=== PATIENT | male | born 1955 | race Two or more races ===

== ENCOUNTER 2018-04-01 08:42 | Emergency (ER) | payer OTHER ==
[~2018-04-01] VITALS: Ht 167.6 cm; Wt 99.8 kg
[2018-04-01] MEDS ORDERED: KETOROLAC TROMETHAMINE 15 MG/ML VIAL ONE (09:11)
[2018-04-01 09:20] LABS: BASOPHILS # (AUTO) 0.1 /CMM (0.0-0.2); BASOPHILS % (AUTO) 0.7 % (0.0-2.0); EOSINOPHILS % (AUTO) 1.1 % (0.0-6.0); HEMATOCRIT 42 % (39-51); HEMOGLOBIN 13.9 g/dL (13.5-17.5); LYMPHOCYTES # (AUTO) 1.8 /CMM (0.8-4.8); LYMPHOCYTES % (AUTO) 16.1 % (20.0-44.0); MEAN CORPUSCULAR HGB CONC 33 g/dl (31.0-36.0); MEAN CORPUSCULAR VOLUME 87 fL (80-96); MONOCYTES # (AUTO) 0.7 /CMM (0.1-1.30); NEUTROPHILS # (AUTO) 8.7 /CMM (1.8-8.9); NEUTROPHILS % (AUTO) 76.1 % (43.0-81.0); PLATELET COUNT (AUTO) 237 /CMM (150-450); RED BLOOD CELL COUNT(AUTO) 4.85 MIL/uL (4.5-6.0); WHITE BLOOD COUNT (AUTO) 11.4 K/uL (4.3-11.0)
[2018-04-01 09:21] LABS: APPEARANCE,URINE CLEAR (CLEAR); BILIRUBIN,URINE NEGATIVE (NEGATIVE); BLOOD, URINE SMALL Ery/uL (NEGATIVE); COLOR,URINE YELLOW (YELLOW); KETONES,URINE NEGATIVE (NEGATIVE); LEUKOCYTE ESTERASE ,URINE NEGATIVE (NEGATIVE); NITRITE, URINE NEGATIVE (NEGATIVE); PH,URINE 7.5 (5.0-8.0); PROTEIN,URINE NEGATIVE (NEGATIVE); UGLUCOSE NEGATIVE (NEGATIVE)
--- NOTE | 2018-04-01 09:23 | NUR ---
R FLANK PAIN X 2 DAYS. PT AAOX4, VSS. DENIES N/V, DIARRHEA OR ANY OTHER DISCOMFORT @ THIS TIME. PT SEEN & EVAL'D BY DR. DENSON. MEDICATED FOR PAIN & WILL CONT TO MONITOR.
[2018-04-01 09:26] LABS: BACTERIA,URINE Rare /HPF (None Seen); SQUAMOUS EPITHELIAL CELL,UR Few /HPF (None Seen); WBC,URINE 0-2 /HPF (0-3)
[2018-04-01 09:28] LABS: CALCIUM, SERUM 8.8 mg/dL (8.5-10.1); CREATININE 0.8 mg/dL (0.6-1.3); POTASSIUM 4.3 mmol/L (3.5-5.1)
[2018-04-01] MEDS ORDERED: KETOROLAC TROMETHAMINE INJ 30 MG/ML VIAL IV ONE (09:30)
[2018-04-01 09:34] LABS: ALBUMIN 3.2 g/dL (3.4-5.0); BILIRUBIN,DIRECT 0.1 mg/dL (0.0-0.2); BILIRUBIN,TOTAL 0.4 mg/dL (0.2-1.0); TOTAL PROTEIN, SERUM 6.8 g/dL (6.4-8.2)
[2018-04-01 11:10] VITALS: BP 142/89
--- NOTE | 2018-04-01 11:11 | NUR ---
Patient discharged to home in stable condition. Written and verbal after care instructions given. Patient verbalizes understanding of instruction. IV removed. Catheter intact and site benign. Pressure and 4x4 applied to site. No bleeding noted.
== END 2018-04-01 11:12 | disposition home or self-care (01) ==
LOC: ER 08:48
DX: R10.11 Right upper quadrant pain (principal); R31.29 Other microscopic hematuria; I10 Essential (primary) hypertension; E78.5 Hyperlipidemia, unspecified; Z87.442 Personal history of urinary calculi; Z98.890 Other specified postprocedural states
CPT/HCPCS: 36415; 76705-TC; 76770-TC; 80048-TC; 80076-TC; 81000-TC; 83690-TC; 85025-TC; A4606; J1885; Z7610

== ENCOUNTER 2018-11-16 08:43 | Inpatient (IN) | payer MEDICAID, OTHER ==
[~2018-11-16] VITALS: Ht 167.6 cm; Wt 93.0 kg
--- NOTE | 2018-11-16 08:50 | NUR ---
RUQ ABDOMINA PAIN, VOMITING BLOOD, BLOOD IN STOOL SINCE LAST NIGHT. PATIENT A/OX4, BREATHING EVEN AND UNLABORED, NO DISTRESS NOTED. ATTACHED TO THE MONITOR. CHANGED INTO GOWN.
[2018-11-16 09:19] LABS: BASOPHILS # (AUTO) 0.1 /CMM (0.0-0.2); BASOPHILS % (AUTO) 0.4 % (0.0-2.0); EOSINOPHILS % (AUTO) 0.1 % (0.0-6.0); HEMATOCRIT 35 % (39-51); HEMOGLOBIN 11.6 g/dL (13.5-17.5); LYMPHOCYTES # (AUTO) 2.3 /CMM (0.8-4.8); LYMPHOCYTES % (AUTO) 12.5 % (20.0-44.0); MEAN CORPUSCULAR HGB CONC 33 g/dl (31.0-36.0); MEAN CORPUSCULAR VOLUME 88 fL (80-96); MONOCYTES # (AUTO) 1.3 /CMM (0.1-1.30); NEUTROPHILS # (AUTO) 14.7 /CMM (1.8-8.9); PLATELET COUNT (AUTO) 287 /CMM (150-450); RED BLOOD CELL COUNT(AUTO) 4.01 MIL/uL (4.5-6.0); WHITE BLOOD COUNT (AUTO) 18.4 K/uL (4.3-11.0)
[2018-11-16 09:28] LABS: CALCIUM, SERUM 8.3 mg/dL (8.5-10.1); CREATININE 0.8 mg/dL (0.6-1.3); POTASSIUM 4.2 mmol/L (3.5-5.1)
[2018-11-16] MEDS ORDERED: PANTOPRAZOLE 80 MG in IV NS 0.9% 100 ML IV ONE (09:30)
[2018-11-16] MEDS ORDERED: PANTOPRAZOLE 40 MG VIAL IV ONE (09:30)
[2018-11-16] MEDS ORDERED: PANTOPRAZOLE 80 MG in IV NS 0.9% 500 ML IV ONE (09:30)
[2018-11-16 09:34] LABS: ALBUMIN 3.3 g/dL (3.4-5.0); BILIRUBIN,DIRECT 0.1 mg/dL (0.0-0.2); BILIRUBIN,TOTAL 0.4 mg/dL (0.2-1.0); TOTAL PROTEIN, SERUM 6.8 g/dL (6.4-8.2)
[2018-11-16] MEDS ORDERED: SIMV20TA6 PO (09:47)
[2018-11-16] MEDS ORDERED: OMEP40CA37 PO (09:47)
[2018-11-16] MEDS ORDERED: AMLO-62 PO (09:47)
[2018-11-16] MEDS ORDERED: CT SWABBABLE VALVE TRANS SET 1 EA INFUS.SET MC ONE (10:12)
[2018-11-16] MEDS ORDERED: IV NS 0.9% 250 ML IV ONE (10:12)
[2018-11-16] MEDS ORDERED: IOHEXOL-300 100 ML VIAL IV ONE (10:12)
--- NOTE | 2018-11-16 11:23 | NUR ---
called [facility].
--- NOTE | 2018-11-16 12:55 | NUR ---
PAGED [facility] FOR [facility].
--- NOTE | 2018-11-16 13:02 | NUR ---
REPORT GIVEN TO JACK DYKES.
--- NOTE | 2018-11-16 13:07 | NUR ---
CONNOR CALLED Dr. Lucas Obrien CALLED
--- NOTE | 2018-11-16 13:40 | NUR ---
RETAIL FIELD MERCHANDISER NOTES PATIENT CAME IN VIA GURNEY. AMBULATED TO GO TO HIS BED. STEADY GAIT. NO COMPLAINS OF ANY PAIN AT THIS TIME. ON ROOM AIR, NO SOB NOTED. CLEAR LUNG SOUNDS. PATIENT WENT TO ER DUE TO RUQ ABD PAIN, VOMITING BLOOD AND BLACK STOOL. ALERT AND ORIENTED X4. FAMILY AT BEDSIDE. HAS A LEFT AC #18. SALINE LOCKED. WAS ABLE TO MAKE NEEDS KNOWN. SKIN IS INTACT, NO PICTURES TAKEN. BED LOCKED AND IN LOWEST POSITION. CALL LIGHT WITHIN REACH. WILL CONTINUE TO MONITOR PATIENT
--- NOTE | 2018-11-16 13:40 | NUR ---
PATIENT TRANSFERRED TO ROOM 118-1 VIA ACLS PROTOCOL. PATIENT DENIES PAIN AT THIS TIME. ENDORSED TO JACK DYKES.
[2018-11-16] MEDS ORDERED: ACETAMINOPHEN 325 MG TABLET PO PRN (14:00)
[2018-11-16] MEDS ORDERED: MAGNESIUM HYDROXIDE 30 ML UDC PO PRN (14:00)
[2018-11-16] MEDS ORDERED: MORPHINE SULFATE INJ 2 MG/ML DISP.SYRIN IV PRN (14:00)
[2018-11-16] MEDS ORDERED: Z GUARD REMEDY 2 OZ OINT TP PRN (14:00)
[2018-11-16] MEDS ORDERED: MAG HYDROX/AL HYDROX/SIMETH 30 ML UDC PO PRN (14:00)
[2018-11-16] MEDS ORDERED: ONDANSETRON HCL/PF 4 MG/2 ML VIAL IVP PRN (14:00)
[2018-11-16 15:00] VITALS: BP 143/86
[2018-11-16] MEDS: IV D5/0.45 NACL 1,000 ML IV PRN (15:03)
--- NOTE | 2018-11-16 15:51 | NUR ---
RN NOTES PER ROSE MRAY, INSERT NGT. TRIED TO INSERT BUT PATIENT REMOVED IT WHILE I WAS ABOUT TO PUT TAPE ON IT. PATIENT STATES HE REFUSES NGT. ROSE MARY MADE AWARE, SHE SAID ITS FINE
[2018-11-16 16:00] VITALS: BP 137/69
[2018-11-16] MEDS: SUCRALFATE 1 G TABLET PO SCH ×2 (17:42→21:31)
--- NOTE | 2018-11-16 19:00 | NUR ---
RN CLOSING NOTES PATIENT IN BED, AWAKE AND ALERT. HAS A LEFT AC #18 WITH D5 HALF NS RUNNING AT 75ML/HR. ON ROOM AIR, SATING WELL AT 100%. ON TELE MONITOR, SR. PATIENT IS NPO, WILL HAVE EGD TOMORROW. CONSENT HAS BEEN SIGNED IN CHART. NGT REFUSED, MD AWARE. PATIENT NO COMPLAINS OF ANY PAIN NOR SOB AT THIS TIME. BED ON LOWEST POSITION. CALL LIGHT WITHIN REACH. WILL ENDORSE TO NOC SHIFT FOR JEFFERY. GRAND DAUGHTER WILL STAY FOR THE NIGHT
--- NOTE | 2018-11-16 19:15 | NUR ---
HOUSEKEEPER SUPERVISOR NOTE PATIENT IN BED HOB HIGH. NO S/S OF DISTRESS. PATIENT A/O X [address] PATIENT SR ON THE MONITOR. PATIENT DENIES CHEST PAIN/ ABD PAIN/ SOB/ , OR DISCOMFORT. PATIENT HAS ;AC 18 G PATENT AND INTACT RUNNING D51/2NS AT 75 ML AN HOURS. PATIENT AWARE OF EGD TOMORROW. RN WILL CONTINUE TO MONITOR FOR CHANGES. BED IN LOWEST LOCKED POSITION, CALL LIGHT WITHIN HAND.
[2018-11-16 20:00] VITALS: BP 130/72
[2018-11-16 20:59] LABS: HEMOGLOBIN 10.9 g/dL (13.5-17.5)
[2018-11-16] MEDS: SIMVASTATIN 20 MG TABLET PO SCH (21:31)
[2018-11-17] VITALS: BP 104/64
[2018-11-17 04:00] VITALS: BP 111/66
[2018-11-17] MEDS: IV D5/0.45 NACL 1,000 ML IV PRN (04:47)
[2018-11-17 07:23] LABS: BASOPHILS % (AUTO) 0.4 % (0.0-2.0); EOSINOPHILS % (AUTO) 1.7 % (0.0-6.0); HEMATOCRIT 30 % (39-51); LYMPHOCYTES % (AUTO) 18.8 % (20.0-44.0); MEAN CORPUSCULAR HGB CONC 34 g/dl (31.0-36.0); MEAN CORPUSCULAR VOLUME 86 fL (80-96); MONOCYTES # (AUTO) 0.7 /CMM (0.1-1.30); MONOCYTES % (AUTO) 6.3 % (2.0-12.0); NEUTROPHILS # (AUTO) 7.8 /CMM (1.8-8.9); NEUTROPHILS % (AUTO) 72.8 % (43.0-81.0); PLATELET COUNT (AUTO) 239 /CMM (150-450); RED BLOOD CELL COUNT(AUTO) 3.47 MIL/uL (4.5-6.0); WHITE BLOOD COUNT (AUTO) 10.7 K/uL (4.3-11.0)
[2018-11-17] MEDS ORDERED: Medication Not On Formulary EA (Omeprazole 40 MG) PO SCH (07:30)
[2018-11-17 07:45] LABS: CREATININE 0.7 mg/dL (0.6-1.3); PHOSPHORUS 3.6 mg/dL (2.5-4.9); POTASSIUM 3.5 mmol/L (3.5-5.1)
[2018-11-17 08:00] VITALS: BP 134/58
[2018-11-17] MEDS: BENAZEPRIL HCL 20 MG TABLET PO SCH (08:44)
[2018-11-17] MEDS: PANTOPRAZOLE 40 MG TABLET.DR PO SCH ×2 (08:44→17:28)
[2018-11-17] MEDS: AMLODIPINE BESYLATE 10 MG TABLET PO SCH (08:44)
[2018-11-17] MEDS: SUCRALFATE 1 G TABLET PO SCH ×4 (08:44→21:47)
[2018-11-17 09:01] LABS: THYROID STIMULATING HORMONE 1.571 uIU/mL (0.358-3.74)
[2018-11-17 12:00] VITALS: BP 108/55
[2018-11-17 16:00] VITALS: BP 133/76
[2018-11-17 16:36] LABS: APPEARANCE,URINE CLOUDY (CLEAR); BILIRUBIN,URINE NEGATIVE (NEGATIVE); BLOOD, URINE 1+ Ery/uL (NEGATIVE); COLOR,URINE YELLOW (YELLOW); KETONES,URINE NEGATIVE (NEGATIVE); LEUKOCYTE ESTERASE ,URINE 1+ (NEGATIVE); NITRITE, URINE NEGATIVE (NEGATIVE); PH,URINE 5.5 (5.0-8.0); PROTEIN,URINE NEGATIVE (NEGATIVE); UGLUCOSE NEGATIVE (NEGATIVE)
[2018-11-17 16:53] LABS: BACTERIA,URINE 4+ /HPF (None Seen)
[2018-11-17 20:00] VITALS: BP 111/60
[2018-11-17] MEDS: SIMVASTATIN 20 MG TABLET PO SCH (21:47)
--- NOTE | 2018-11-18 | NUR ---
RN NOTE PATIENT IN BED AWAKE A/O X 4 , NO S/S OF SOB/ACUTE DISTRESS NOTED, DENIES PAIN OR DISCOMFORT, LEFT AC 18 G PATENT AND INTACT RUNNING, INFORMED PATIENT THAT EGD WILL BE TOMORROW AND HE WILL NEED TO BE NPO AFTER MIDNIGHT, VERBALIZED UNDERSTANDING, WILL CONTINUE TO MONITOR CLOSELY, FAMILY AT BEDSIDE, BED IN LOWEST LOCKED POSITION, CALL LIGHT WITHIN REACH.
[2018-11-18 04:00] VITALS: BP 103/52
[2018-11-18 06:19] LABS: BASOPHILS % (AUTO) 0.5 % (0.0-2.0); EOSINOPHILS % (AUTO) 2.1 % (0.0-6.0); HEMATOCRIT 27 % (39-51); HEMOGLOBIN 9.2 g/dL (13.5-17.5); LYMPHOCYTES # (AUTO) 1.7 /CMM (0.8-4.8); LYMPHOCYTES % (AUTO) 20.1 % (20.0-44.0); MEAN CORPUSCULAR HGB CONC 34 g/dl (31.0-36.0); MEAN CORPUSCULAR VOLUME 86 fL (80-96); MONOCYTES # (AUTO) 0.6 /CMM (0.1-1.30); MONOCYTES % (AUTO) 6.6 % (2.0-12.0); NEUTROPHILS # (AUTO) 6.1 /CMM (1.8-8.9); NEUTROPHILS % (AUTO) 70.7 % (43.0-81.0); PLATELET COUNT (AUTO) 201 /CMM (150-450); RED BLOOD CELL COUNT(AUTO) 3.18 MIL/uL (4.5-6.0); WHITE BLOOD COUNT (AUTO) 8.7 K/uL (4.3-11.0)
[2018-11-18 06:42] LABS: CREATININE 0.8 mg/dL (0.6-1.3); MAGNESIUM 1.8 mg/dL (1.8-2.4); PHOSPHORUS 3.5 mg/dL (2.5-4.9); POTASSIUM 3.8 mmol/L (3.5-5.1)
--- NOTE | 2018-11-18 06:46 | NUR ---
RN NOTES, PATIENT SLEEPING AT THIS TIME, NO CHANGE IN CONDITION DURING THE NIGHT, NPO SINCE MIDNIGHT FOR EGD, WILL ENDORSE CONTINUITY OF CARE TO ONCOMING NURSE.
[2018-11-18] MEDS: SUCRALFATE 1 G TABLET PO SCH ×4 (07:30→21:30)
[2018-11-18 08:00] VITALS: BP 129/69
[2018-11-18] MEDS: AMLODIPINE BESYLATE 10 MG TABLET PO SCH (08:19)
[2018-11-18] MEDS: BENAZEPRIL HCL 20 MG TABLET PO SCH (08:19)
[2018-11-18] MEDS: PANTOPRAZOLE 40 MG TABLET.DR PO SCH ×2 (08:20→18:18)
[2018-11-18] MEDS ORDERED: LIDOCAINE 1% INJ 50 ML MDV IJ ONE (15:51)
[2018-11-18 16:00] VITALS: BP 140/81
--- NOTE | 2018-11-18 16:30 | NUR ---
PATIENT BACK FROM EGD. ORDERS RECEIVED. SLIGHTLY DROWSY, BUT AROUSABLE. BP 144/88, HR 71, SPO2 96% ON RA, 98.1F TEMP. WILL CONTINUE TO MONITOR
--- NOTE | 2018-11-18 19:50 | NUR ---
RN NOTE PATIENT IN BED AWAKE A/O X 4 , FINISHING DINNER AT THIS TIME, NO S/S OF SOB/ACUTE DISTRESS NOTED, DENIES PAIN OR DISCOMFORT, LEFT AC 18 G PATENT AND INTACT, NO S/S OF INFILTRATION NOTED, IS/P EGD DENIES ANY PAIN OR DISCOMFORT, AND TOLERATING DIET FINE, BED IN LOWEST AND LOCKED POSITION, CALL LIGHT WITHIN REACH, WILL CONTINUE TO MONITOR CLOSELY.
[2018-11-18 20:00] VITALS: BP 139/77
[2018-11-18] MEDS: SIMVASTATIN 20 MG TABLET PO SCH (21:30)
[2018-11-19 04:00] VITALS: BP 136/80
--- NOTE | 2018-11-19 06:45 | NUR ---
RN NOTES, PATIENT AWAKE A/O , NO CHANGE IN CONDITION DURING THE NIGHT, AT BEDSIDE, WILL ENDORSE CONTINUITY OF CARE TO ONCOMING NURSE.
[2018-11-19] MEDS: SUCRALFATE 1 G TABLET PO SCH (07:49)
[2018-11-19 08:00] VITALS: BP 144/67
[2018-11-19 08:27] VITALS: BP 144/67
[2018-11-19] MEDS: PANTOPRAZOLE 40 MG TABLET.DR PO SCH (08:27)
[2018-11-19] MEDS: BENAZEPRIL HCL 20 MG TABLET PO SCH (08:27)
[2018-11-19] MEDS: AMLODIPINE BESYLATE 10 MG TABLET PO SCH (08:27)
--- NOTE | 2018-11-19 10:20 | NUR ---
RN D/C NOTE GI RECS, PER DR. LOUIE HOWEVER, PATIENT DID NOT WANT TO WAIT UNTIL HOSPITALIST WAS ABLE TO COME SPEAK WITH HIM. NO NEW PRESCRIPTIONS GIVEN, DIET EDUCATION PROVIDED.
== END 2018-11-19 10:23 | disposition home or self-care (01) | DRG 243 ==
LOC: ER 08:45 → TELE1 12:38 → MEDSG1 11-17 11:30
PROVIDERS: ADMIT Registered Nurse; ATTEND Registered Nurse
PROC: 0DB48ZX Excision of Esophagogastric Junction, Via Natural or Artificial Opening Endoscopic, Diagnostic (ICD-10-PCS; principal; 2018-11-18)
DX: K22.70 Barrett's esophagus without dysplasia (principal); E44.1 Mild protein-calorie malnutrition; E66.01 Morbid (severe) obesity due to excess calories; D64.9 Anemia, unspecified; E86.0 Dehydration; E78.5 Hyperlipidemia, unspecified; K21.0 Gastro-esophageal reflux disease with esophagitis; Z87.442 Personal history of urinary calculi; I10 Essential (primary) hypertension; Z79.899 Other long term (current) drug therapy; Z87.891 Personal history of nicotine dependence; Z80.0 Family history of malignant neoplasm of digestive organs; Z68.33 Body mass index [BMI] 33.0-33.9, adult; D72.829 Elevated white blood cell count, unspecified; K44.9 Diaphragmatic hernia without obstruction or gangrene; K57.90 Diverticulosis of intestine, part unspecified, without perforation or abscess without bleeding
CPT/HCPCS: 36415; 80048-TC; 80061-TC; 80076-TC; 81000-TC; 83690-TC; 83735-TC; 84100-TC; 84443-TC; 85025-TC; 85027-TC; 85730-TC; 86850-TC; 87081-TC; 87086-TC; 88305-TC; 88313-TC; A4216; C9113; G0378; J2704; J3490; J7030; J7050; Q9967

== ENCOUNTER 2018-12-04 06:32 | Emergency (ER) | payer MEDICAID ==
[~2018-12-04] VITALS: Ht 167.6 cm; Wt 102.1 kg
[~2018-12-04 06:32] MED LIST: AMLO-62 PO; OMEP40CA37 PO; SIMV20TA6 PO
--- NOTE | 2018-12-04 06:58 | NUR ---
Pt BIBSELF FROM HOME C/O NONRADIATING MIDSTERNAL CP, GENERALIZED ABD PAIN, & BACK PAIN SINCE LAST NIGHT. Pt IS A/OX4, VERBAL, ABLE TO MAKE NEEDS KNOWN. PLACED ON MONITOR. EKG BEING DONE AT BEDSIDE. Pt ALREADY SEEN BY MD AT BEDSIDE. AWAITING FOR MD ORDERS. WILL CARRY OUT MD ORDERS ACCORDINGLY.
[2018-12-04] MEDS ORDERED: LIDOCAINE VISCOUS 2% UD 15 ML UDC MM ONE (07:00)
[2018-12-04] MEDS ORDERED: DICYCLOMINE HCL 10 MG CAPSULE PO ONE ×2 (07:00→07:09)
[2018-12-04] MEDS ORDERED: MAG HYDROX/AL HYDROX/SIMETH 30 ML UDC PO ONE (07:00)
[2018-12-04] MEDS ORDERED: FAMOTIDINE (20 MG) 20 MG TABLET PO ONE (07:00)
[2018-12-04] MEDS ORDERED: FAMOTIDINE (20 MG) 20 MG TABLET ONE (07:09)
[2018-12-04] MEDS ORDERED: LIDOCAINE VISCOUS 2% UD 15 ML UDC ONE (07:09)
[2018-12-04] MEDS ORDERED: MAG HYDROX/AL HYDROX/SIMETH 30 ML UDC ONE (07:09)
--- NOTE | 2018-12-04 07:22 | NUR ---
Pt RESTING COMFORTABLY IN BED. WILL ENDORSE TO DAYSHIFT RN FOR Pt'S JEFFERY.
[2018-12-04 07:47] VITALS: BP 140/70
--- NOTE | 2018-12-04 07:47 | NUR ---
PATIENT FEELS BETTER. DENIES PAIN AT THIS TIME. Patient discharged to home in stable condition. Written and verbal after care instructions given. Patient verbalizes understanding of instruction.
== END 2018-12-04 07:48 | disposition home or self-care (01) ==
LOC: ER 06:37
DX: K20.9 Esophagitis, unspecified (principal); I10 Essential (primary) hypertension; E78.5 Hyperlipidemia, unspecified; Z87.442 Personal history of urinary calculi; Z98.890 Other specified postprocedural states; Z79.899 Other long term (current) drug therapy

== ENCOUNTER 2019-06-02 07:24 | Emergency (ER) | payer MEDICAID ==
[~2019-06-02] VITALS: Ht 167.6 cm; Wt 103.4 kg
[~2019-06-02 07:24] MED LIST changes: +OMEP40CA13 PO; -OMEP40CA37 PO; +SIMV-46 PO; -SIMV20TA6 PO
[2019-06-02] MEDS ORDERED: ONDANSETRON HCL/PF 4 MG/2 ML VIAL ONE (07:51)
[2019-06-02] MEDS ORDERED: CEFTRIAXONE 1GM BAG (ER ONLY) 50 ML IV ONE ×2 (07:51→08:00)
[2019-06-02] MEDS ORDERED: MORPHINE SULFATE INJ 4 MG/ML DISP.SYRIN ONE (07:52)
--- NOTE | 2019-06-02 07:54 | NUR ---
c/o abd pain since last night, +nausea. Patient a/ox4, breathing even and unlabored, nos ob noted, needs attended, kept comfortable. Changed into gown, attached to the monitoring engineer.
--- NOTE | 2019-06-02 07:55 | NUR ---
IV LINE ESTABLISHED, BLOOD DRAWN AND SENT TO LAB. TAKEN TO CT.
[2019-06-02] MEDS ORDERED: MORPHINE SULFATE INJ 2 MG/ML DISP.SYRIN IV ONE (08:00)
[2019-06-02] MEDS ORDERED: IV NS 0.9% 1,000 ML BAG IV ONE (08:00)
[2019-06-02] MEDS ORDERED: ONDANSETRON HCL/PF 4 MG/2 ML VIAL IVP ONE (08:00)
--- NOTE | 2019-06-02 08:02 | NUR ---
patient came back from CT.
[2019-06-02 08:17] LABS: BASOPHILS # (AUTO) 0.1 /CMM (0.0-0.2); BASOPHILS % (AUTO) 0.7 % (0.0-2.0); EOSINOPHILS % (AUTO) 0.9 % (0.0-6.0); HEMATOCRIT 40 % (39-51); HEMOGLOBIN 12.9 g/dL (13.5-17.5); LYMPHOCYTES # (AUTO) 1.4 /CMM (0.8-4.8); LYMPHOCYTES % (AUTO) 13.4 % (20.0-44.0); MEAN CORPUSCULAR HGB CONC 33 g/dl (31.0-36.0); MEAN CORPUSCULAR VOLUME 81 fL (80-96); MONOCYTES # (AUTO) 0.6 /CMM (0.1-1.30); MONOCYTES % (AUTO) 5.5 % (2.0-12.0); NEUTROPHILS # (AUTO) 8.5 /CMM (1.8-8.9); NEUTROPHILS % (AUTO) 79.5 % (43.0-81.0); PLATELET COUNT (AUTO) 266 /CMM (150-450); RED BLOOD CELL COUNT(AUTO) 4.87 MIL/uL (4.5-6.0); WHITE BLOOD COUNT (AUTO) 10.7 K/uL (4.3-11.0)
[2019-06-02 08:26] LABS: BILIRUBIN,URINE Negative (NEGATIVE); BLOOD, URINE Moderate Ery/uL (NEGATIVE); COLOR,URINE Yellow (YELLOW); KETONES,URINE Negative (NEGATIVE); LEUKOCYTE ESTERASE ,URINE Negative (NEGATIVE); NITRITE, URINE Negative (NEGATIVE); PH,URINE 5.5 (5.0-8.0); PROTEIN,URINE Negative (NEGATIVE); UGLUCOSE Negative (NEGATIVE); UROBILINOGEN,URINE 0.2 EU/dL (0.2)
[2019-06-02 08:29] LABS: CALCIUM, SERUM 8.8 mg/dL (8.5-10.1); CREATININE 0.9 mg/dL (0.6-1.3); POTASSIUM 3.5 mmol/L (3.5-5.1)
[2019-06-02 08:30] LABS: APPEARANCE,URINE SLIGHTLY HAZY (CLEAR)
[2019-06-02 08:32] LABS: BACTERIA,URINE None seen /HPF (None Seen); SQUAMOUS EPITHELIAL CELL,UR Rare /HPF (None Seen); WBC,URINE 0-2 /HPF (0-3)
[2019-06-02 08:34] LABS: ALBUMIN 3.4 g/dL (3.4-5.0); BILIRUBIN,DIRECT 0.1 mg/dL (0.0-0.2); BILIRUBIN,TOTAL 0.3 mg/dL (0.2-1.0); TOTAL PROTEIN, SERUM 7.3 g/dL (6.4-8.2)
[2019-06-02 09:14] VITALS: BP 158/83
--- NOTE | 2019-06-02 09:14 | NUR ---
Patient denies pain at this time. IV removed. Catheter intact and site benign. Pressure and 4x4 applied to site. No bleeding noted.Patient discharged to home in stable condition. Written and verbal after care instructions given. Patient verbalizes understanding of instruction.
== END 2019-06-02 09:14 | disposition home or self-care (01) ==
LOC: ER 07:32
DX: R10.31 Right lower quadrant pain (principal); R10.11 Right upper quadrant pain; I10 Essential (primary) hypertension; E78.5 Hyperlipidemia, unspecified; Z87.442 Personal history of urinary calculi; Z90.49 Acquired absence of other specified parts of digestive tract; Z98.890 Other specified postprocedural states; Z79.899 Other long term (current) drug therapy
CPT/HCPCS: 36415; 74176; 80048; 80076; 81001; 83690; 85025; 87086; 96365; 96375; 99284; J0696; J2270; J2405; J7030; 81000-TC

== ENCOUNTER 2019-07-30 07:38 | Emergency (ER) | payer MEDICAID ==
[~2019-07-30] VITALS: Ht 167.6 cm; Wt 100.7 kg
--- NOTE | 2019-07-30 08:00 | NUR ---
RLQ PAIN X 3 DAYS. SORE THROAT STARTED YESTERDAY. PATIENT A/OX4, BREATHING EVEN AND UNLABORED, NO SOB NOTED, NEEDS ATTENDED, KEPT COMFORTABLE.
[2019-07-30] MEDS ORDERED: KETOROLAC TROMETHAMINE 15 MG/ML VIAL ONE (08:18)
[2019-07-30 08:25] LABS: BASOPHILS # (AUTO) 0.1 /CMM (0.0-0.2); BASOPHILS % (AUTO) 0.5 % (0.0-2.0); EOSINOPHILS % (AUTO) 1.3 % (0.0-6.0); HEMATOCRIT 41 % (39-51); HEMOGLOBIN 13.2 g/dL (13.5-17.5); LYMPHOCYTES # (AUTO) 1.4 /CMM (0.8-4.8); LYMPHOCYTES % (AUTO) 13.9 % (20.0-44.0); MEAN CORPUSCULAR HGB CONC 33 g/dl (31.0-36.0); MEAN CORPUSCULAR VOLUME 83 fL (80-96); MONOCYTES # (AUTO) 0.9 /CMM (0.1-1.30); MONOCYTES % (AUTO) 8.9 % (2.0-12.0); NEUTROPHILS # (AUTO) 7.7 /CMM (1.8-8.9); NEUTROPHILS % (AUTO) 75.4 % (43.0-81.0); PLATELET COUNT (AUTO) 239 /CMM (150-450); RED BLOOD CELL COUNT(AUTO) 4.89 MIL/uL (4.5-6.0); WHITE BLOOD COUNT (AUTO) 10.1 K/uL (4.3-11.0)
[2019-07-30 08:28] LABS: CALCIUM, SERUM 8.2 mg/dL (8.5-10.1); CREATININE 0.8 mg/dL (0.6-1.3); POTASSIUM 3.6 mmol/L (3.5-5.1)
[2019-07-30] MEDS ORDERED: IV NS 0.9% 1,000 ML BAG IV ONE (08:30)
[2019-07-30] MEDS ORDERED: KETOROLAC TROMETHAMINE INJ 30 MG/ML VIAL IV ONE (08:30)
[2019-07-30 08:35] LABS: ALBUMIN 3.4 g/dL (3.4-5.0); BILIRUBIN,DIRECT 0.1 mg/dL (0.0-0.2); BILIRUBIN,TOTAL 0.4 mg/dL (0.2-1.0); TOTAL PROTEIN, SERUM 6.9 g/dL (6.4-8.2)
[2019-07-30 08:39] LABS: APPEARANCE,URINE Clear (CLEAR); BILIRUBIN,URINE Negative (NEGATIVE); BLOOD, URINE Moderate Ery/uL (NEGATIVE); COLOR,URINE Yellow (YELLOW); KETONES,URINE Negative (NEGATIVE); LEUKOCYTE ESTERASE ,URINE Negative (NEGATIVE); NITRITE, URINE Negative (NEGATIVE); PROTEIN,URINE Negative (NEGATIVE); UGLUCOSE Negative (NEGATIVE); UROBILINOGEN,URINE 0.2 EU/dL (0.2)
[2019-07-30 08:40] LABS: BACTERIA,URINE Rare /HPF (None Seen); SQUAMOUS EPITHELIAL CELL,UR None Seen /HPF (None Seen); WBC,URINE 0-2 /HPF (0-3)
[2019-07-30] MEDS ORDERED: IOHEXOL-300 100 ML VIAL IV ONE (08:54)
[2019-07-30] MEDS ORDERED: CT SWABBABLE VALVE TRANS SET 1 EA INFUS.SET MC ONE (08:55)
[2019-07-30] MEDS ORDERED: IV NS 0.9% 250 ML IV ONE (08:55)
[2019-07-30 09:41] VITALS: BP 155/90
--- NOTE | 2019-07-30 09:41 | NUR ---
AMBULATORY WITH STEADY GAIT, DENIES PAIN OR DISCOMFORT. IV removed. Catheter intact and site benign. Pressure and 4x4 applied to site. No bleeding noted.Patient discharged to home in stable condition. Written and verbal after care instructions given. Patient verbalizes understanding of instruction.
== END 2019-07-30 09:42 | disposition home or self-care (01) ==
LOC: ER 07:38
DX: R10.31 Right lower quadrant pain (principal); I10 Essential (primary) hypertension; R51 Headache; E78.5 Hyperlipidemia, unspecified; Z87.442 Personal history of urinary calculi; Z90.89 Acquired absence of other organs
CPT/HCPCS: 36415; 70470; 74177; 80048; 80076; 81001; 83690; 85025; 96374; 99285; J1885; J7030; J7050; Q9967; 81000-TC

== ENCOUNTER 2020-09-15 10:51 | Emergency (ER) | payer MEDICAID ==
[~2020-09-15] VITALS: Ht 167.6 cm; Wt 98.4 kg
--- NOTE | 2020-09-15 11:05 | NUR ---
ON & OFF PALPITATION X 3 DAYS. PATIENT A/OX4, BREATHING EVEN AND UNLABORED, DENIES CHEST PAIN. NO DISTRESS NOTED. CHANGED INTO A GOWN, NEEDS ATTENDED.
--- NOTE | 2020-09-15 11:20 | NUR ---
IV LINE ESTABLISHED BLOOD DRAWN AND SENT TO LAB
[2020-09-15 11:23] LABS: BASOPHILS % (AUTO) 0.4 % (0.0-2.0); EOSINOPHILS % (AUTO) 0.7 % (0.0-6.0); HEMATOCRIT 42 % (39-51); HEMOGLOBIN 13.5 g/dL (13.5-17.5); LYMPHOCYTES # (AUTO) 1.6 /CMM (0.8-4.8); LYMPHOCYTES % (AUTO) 13.9 % (20.0-44.0); MEAN CORPUSCULAR HGB CONC 33 g/dl (31.0-36.0); MEAN CORPUSCULAR VOLUME 84 fL (80-96); MONOCYTES % (AUTO) 8.6 % (2.0-12.0); NEUTROPHILS # (AUTO) 8.9 /CMM (1.8-8.9); NEUTROPHILS % (AUTO) 76.4 % (43.0-81.0); PLATELET COUNT (AUTO) 257 /CMM (150-450); RED BLOOD CELL COUNT(AUTO) 4.93 MIL/uL (4.5-6.0); WHITE BLOOD COUNT (AUTO) 11.6 K/uL (4.3-11.0)
[2020-09-15 11:35] LABS: CARBON DIOXIDE 25 mmol/L (21-32); CHLORIDE 106 mmol/L (98-107); CREATININE 0.8 mg/dL (0.6-1.3); GLUCOSE 104 mg/dL (74-106); POTASSIUM 3.4 mmol/L (3.5-5.1); SODIUM SERUM 141 mmol/L (136-145); UREA NITROGEN, BLOOD 13 mg/dL (7-18)
[2020-09-15 11:45] LABS: CALCIUM, SERUM 8.7 mg/dL (8.5-10.1)
[2020-09-15] MEDS ORDERED: hydrALAZINE HCL IV 20 MG VIAL ONE (12:24)
--- NOTE | 2020-09-15 12:28 | NUR ---
PATIENT RESTING, IN NO DISTRESS NOTED. NEEDS ATTENDED.
[2020-09-15] MEDS ORDERED: hydrALAZINE HCL IV 20 MG VIAL IV ONE (12:30)
[2020-09-15 12:37] LABS: ALBUMIN 3.9 g/dL (3.4-5.0); BILIRUBIN,DIRECT 0.1 mg/dL (0.0-0.2); BILIRUBIN,TOTAL 0.5 mg/dL (0.2-1.0); TOTAL PROTEIN, SERUM 7.4 g/dL (6.4-8.2)
--- NOTE | 2020-09-15 13:17 | NUR ---
PATIENT'S BP IMPROVED, STILL C/O HEADACHE. DR. DEBBIE CHINE AWARE
[2020-09-15] MEDS ORDERED: KETOROLAC TROMETHAMINE INJ 30 MG/ML VIAL IV ONE (13:30)
[2020-09-15] MEDS ORDERED: ACETAMINOPHEN 325 MG TABLET PO ONE (13:30)
[2020-09-15] MEDS ORDERED: ACETAMINOPHEN 325 MG TABLET ONE (13:49)
[2020-09-15] MEDS ORDERED: KETOROLAC TROMETHAMINE 15 MG/ML VIAL ONE (13:49)
[2020-09-15 14:08] VITALS: BP 142/99
--- NOTE | 2020-09-15 14:08 | NUR ---
The patient alert and oriented x4. Denies pain. Respiration regular and unlagbored. Denies SOB. Patient discharged to home in stable condition. Written and verbal after care instructions given. Patient verbalizes understanding of instruction.
== END 2020-09-15 14:09 | disposition home or self-care (01) ==
LOC: ER 10:55
DX: I11.0 Hypertensive heart disease with heart failure (principal); I50.9 Heart failure, unspecified; R00.2 Palpitations; R51.9 Headache, unspecified; E78.5 Hyperlipidemia, unspecified; R00.0 Tachycardia, unspecified; Z87.442 Personal history of urinary calculi; Z98.890 Other specified postprocedural states; Z79.899 Other long term (current) drug therapy; Z68.35 Body mass index [BMI] 35.0-35.9, adult
CPT/HCPCS: 36415; 71045; 80048; 80076; 83690; 84484; 85025; 93005; 96374; 96375; 99285; J0360; J1885

== ENCOUNTER 2021-01-06 22:54 | Inpatient (IN) | payer MEDICAID ==
[~2021-01-06] VITALS: Ht 167.6 cm; Wt 103.4 kg
[~2021-01-06 22:54] MED LIST changes: -OMEP40CA13 PO; +OMEP40CA21 PO
--- NOTE | 2021-01-06 23:15 | NUR ---
PATIENT BIBSELF WITH C/O OCCIPITAL AREA H/A W/ LEFT SIDED CHEST PAIN THATS NON-RADIATING. PATIENT STATED IT STARTED TWO DAYS AGO W/ "ROOM SPINNING" SENSATION OF DIZZINESS.
--- NOTE | 2021-01-06 23:20 | NUR ---
RAD AT BEDSIDE
--- NOTE | 2021-01-06 23:25 | NUR ---
COVID SWAB COLLECTED AND SENT TO LAB
[2021-01-06] MEDS ORDERED: hydrALAZINE HCL IV 20 MG VIAL IV ONE (23:30)
[2021-01-06 23:44] LABS: BASOPHILS # (AUTO) 0.1 K/uL (0.0-0.2); BASOPHILS % (AUTO) 0.5 % (0.0-2.0); EOSINOPHILS % (AUTO) 1.3 % (0.0-6.0); HEMATOCRIT 40 % (39-51); HEMOGLOBIN 13.4 g/dL (13.5-17.5); LYMPHOCYTES # (AUTO) 2.2 K/uL (0.8-4.8); MEAN CORPUSCULAR HGB CONC 33 g/dl (31.0-36.0); MEAN CORPUSCULAR VOLUME 87 fL (80-96); MONOCYTES # (AUTO) 1.1 K/uL (0.1-1.30); MONOCYTES % (AUTO) 9.4 % (2.0-12.0); NEUTROPHILS # (AUTO) 8.6 K/uL (1.8-8.9); NEUTROPHILS % (AUTO) 70.8 % (43.0-81.0); PLATELET COUNT (AUTO) 252 K/uL (150-450); RED BLOOD CELL COUNT(AUTO) 4.65 MIL/uL (4.5-6.0); WHITE BLOOD COUNT (AUTO) 12.2 K/uL (4.3-11.0)
[2021-01-06] MEDS ORDERED: hydrALAZINE HCL IV 20 MG VIAL ONE (23:49)
[2021-01-07 00:02] LABS: ALBUMIN 3.5 g/dL (3.4-5.0); BILIRUBIN,DIRECT 0.1 mg/dL (0.0-0.2); BILIRUBIN,TOTAL 0.4 mg/dL (0.2-1.0); CALCIUM, SERUM 8.2 mg/dL (8.5-10.1); CREATININE 0.9 mg/dL (0.6-1.3); POTASSIUM 3.3 mmol/L (3.5-5.1)
[2021-01-07] MEDS ORDERED: ASPIRIN 325 MG TABLET ONE (00:10)
[2021-01-07] MEDS ORDERED: KETOROLAC TROMETHAMINE INJ 30 MG/ML VIAL IV ONE (00:30)
[2021-01-07] MEDS ORDERED: ASPIRIN 325 MG TABLET PO ONE (00:30)
[2021-01-07] MEDS ORDERED: KETOROLAC TROMETHAMINE INJ 30 MG/ML VIAL ONE (00:39)
--- NOTE | 2021-01-07 03:00 | NUR ---
PATIENT IN NO ACUTE. PATIENT USING URINAL. PATIENT CONNECTED TO APPLICATIONS DEVELOPMENT ANALYST AND POX.
[2021-01-07] MEDS ORDERED: MAGNESIUM HYDROXIDE 30 ML UDC PO PRN (03:30)
[2021-01-07] MEDS ORDERED: ONDANSETRON HCL/PF 4 MG/2 ML VIAL IVP PRN (03:30)
[2021-01-07] MEDS ORDERED: ACETAMINOPHEN 325 MG TABLET PO PRN (03:30)
[2021-01-07] MEDS ORDERED: MAG HYDROX/AL HYDROX/SIMETH 30 ML UDC PO PRN (03:30)
[2021-01-07] MEDS ORDERED: Z GUARD REMEDY 2 OZ OINT TP PRN (03:30)
[2021-01-07] MEDS ORDERED: ZOLPIDEM TARTRATE 5 MG TABLET PO PRN (03:30)
[2021-01-07] MEDS ORDERED: PANTOPRAZOLE 40 MG TABLET.DR PO SCH (07:30)
--- NOTE | 2021-01-07 07:49 | NUR ---
REPORT GIVEN TO JACKY DYKES FOR JEFFERY.
--- NOTE | 2021-01-07 08:05 | NUR ---
PATIENT TRANSFERRED TO ROOM 309-1 VIA ACLS PROTOCOL. NO DISTRESS NOTED. NEEDS ATTENDED. ENDORSED TO JACKY DYKES.
--- NOTE | 2021-01-07 08:15 | NUR ---
MS RN NOTE RECEIVED PATIENT FROM ER. PATIENT ARRIVED VIA GURNEY ACCOMPANIED BY 1 NURSE. PATIENT TRANSFERRED TO BED AND COMFORT MEASURES PROVIDED. PATIENT IS AWAKE, A/O X4. ON ROOM AIR, NO SOB NOTED. PATIENT DENIES ANY PAIN OR DISCOMFORT AT THIS TIME. IV ACCESS ON LEFT AC G20, INTACT AND PATENT. SAFETY MEASURES MAINTAINED. BED IN LOWEST POSITION, BRAKES LOCKED. SIDE RAILS UP X2. KEPT CALL LIGHT WITHIN REACH. WILL CONTINUE TO MONITOR PATIENT
[2021-01-07] MEDS ORDERED: HYDR-4076 PO (08:24)
[2021-01-07] MEDS ORDERED: CLON0.1T PO (08:24)
[2021-01-07] MEDS: POTASSIUM CHLORIDE 20 MEQ TAB.PRT.SR PO SCH ×2 (08:59→10:00)
[2021-01-07 09:00] VITALS: BP 162/96
[2021-01-07] MEDS ORDERED: VALSARTAN 80 MG TABLET PO SCH (09:00)
--- NOTE | 2021-01-07 12:30 | NUR ---
MS RN NOTE PATIENT WITH ORDER FOR DISCHARGE. PATIENT HEALTH TEACHING DONE REGARDING DISCHARGE. VERBALIZED UNDERSTANDING AND APPRECIATION. COMFORT MEASURES PROVIDED. NOT IN DISTRESS. WILL CONTINUE TO MONITOR PATINET.
[2021-01-07] MEDS ORDERED: ASPI-1420 PO (12:40)
--- NOTE | 2021-01-07 15:35 | NUR ---
MS RN NOTE PATIENT DISCHARGED ORDERED. IN STABLE CONDITION. IV ACCESS DISCONTINUED AND COVERED WITH BANDAID, TOLERATED WELL. ID BAND REMOVED. PATIENT ACCOMPANIED BY NURSE TO LOBBY. IN STABLE CONDITION. ENDORSED ACCORDINGLY.
[2021-01-08] MEDS ORDERED: ASPIRIN EC 325 MG TABLET.DR PO SCH (09:00)
--- NOTE | 2021-01-10 08:15 | NUR ---
MS RN NOTE RECEIVED PATIENT FROM ER. PATIENT ARRIVED VIA GURNEY ACCOMPANIED BY 1 NURSE. PATIENT TRANSFERRED TO BED AND COMFORT MEASURES PROVIDED. PATIENT IS AWAKE, A/O X4. ON ROOM AIR, NO SOB NOTED. PATIENT DENIES ANY PAIN OR DISCOMFORT AT THIS TIME. IV ACCESS ON LEFT AC G20, INTACT AND PATENT. SAFETY MEASURES MAINTAINED. BED IN LOWEST POSITION, BRAKES LOCKED. SIDE RAILS UP X2. KEPT CALL LIGHT WITHIN REACH. WILL CONTINUE TO MONITOR PATIENT Addendum: 01/10/21 at 1455 by JACKY FRAGOSO RN WR[facility]
== END 2021-01-07 16:35 | disposition home or self-care (01) | DRG 243 ==
LOC: ER 22:59 → TELE 01-07 07:43
PROVIDERS: ADMIT Nurse Practitioner Acute Care; ATTEND Nurse Practitioner Acute Care
DX: K21.9 Gastro-esophageal reflux disease without esophagitis (principal); E78.5 Hyperlipidemia, unspecified; E87.6 Hypokalemia; I16.0 Hypertensive urgency; R94.31 Abnormal electrocardiogram [ECG] [EKG]; Z87.442 Personal history of urinary calculi; I10 Essential (primary) hypertension; Z98.890 Other specified postprocedural states; Z79.899 Other long term (current) drug therapy; R51.9 Headache, unspecified
CPT/HCPCS: 36415; 70450-TC; 71045-TC; 80048-TC; 80076-TC; 83880; 84484-TC; 85025-TC; 85730-TC; 87081-TC; 93307-TC; C9803; G0378; J0360; J1885